=== PATIENT | female | born 1985 | race Caucasian/White ===

== ENCOUNTER 2017-04-14 13:56 | Emergency (ER) | payer BC ==
[~2017-04-14] VITALS: Ht 154.9 cm; Wt 68.0 kg
[2017-04-14 14:49] LABS: ABSOLUTE NEUTROPHILS 7.5 thou/uL (1.4-8.2); BASOPHILS 0.4 % (0.0-2.0); EOSINOPHILS 2.8 % (0.0-3.0); HEMATOCRIT 38.3 % (37.0-47.0); HEMOGLOBIN 13.5 gm/dL (12.0-15.0); MCHC 35.1 g/dL (28.0-37.0); MCV 88.3 fL (80.0-100.0); MONOCYTES 5.5 % (1.0-8.0); PLATELET COUNT 238 thou/uL (150-400); POLYS 72.3 % (36.0-66.0); RBC 4.34 mil/uL (4.20-5.00); WBC 10.3 thou/uL (4.0-11.0)
[2017-04-14 14:51] LABS: CALCIUM 8.4 mg/dL (8.5-10.1); CREATININE 0.6 mg/dL (0.6-1.0); POTASSIUM 3.6 mmol/L (3.5-5.1)
[2017-04-14 15:38] LABS: URINE BILIRUBIN NEGATIVE (Negative); URINE BLOOD 1+ (Negative); URINE CLARITY CLEAR; URINE COLOR YELLOW; URINE GLUCOSE-RANDOM* NEGATIVE (Negative); URINE KETONES NEGATIVE (Negative); URINE LEUKOCYTES-REFLEX NEGATIVE (Negative); URINE NITRITE-REFLEX NEGATIVE (Negative); URINE PROTEIN (DIPSTICK) NEGATIVE (Negative); URINE SPECIFIC GRAVITY >= 1.030 (1.005-1.035); URINE UROBILINOGEN 0.2 E.U./dl (0.2-1.0)
[2017-04-14 15:54] LABS: MUCUS >6 Heavy strn/LPF (None Seen); SQUAMOUS >10 Many /LPF (0-3)
[2017-04-14 15:55] LABS: BACTERIA-REFLEX 1-9 Few /HPF (None Seen); CASTS None Seen /LPF (None Seen); CRYSTALS None Seen /LPF (None Seen); URINE RBC 0-2 Rare /HPF (0-2); URINE WBC-REFLEX 0-5 Rare /HPF (0-5)
[2017-04-14] MEDS ORDERED: PRENATAL MULTI1 EAC4 PO (17:08)
[2017-04-14] MEDS ORDERED: REGLAN 10 MG TA10 MG PO (17:08)
== END 2017-04-14 17:29 | disposition home or self-care (01) ==
LOC: EDBD 13:56 → ER 13:56
PROVIDERS: Physician Assistant
DX: O20.0 Threatened abortion (principal); Z3A.01 Less than 8 weeks gestation of pregnancy; Z91.013 Allergy to seafood

== ENCOUNTER 2020-06-19 17:18 | Emergency (ER) | payer OTHER ==
[~2020-06-19] VITALS: Ht 157.5 cm; Wt 82.6 kg
[~2020-06-19 17:18] MED LIST: PRENATAL MULTI1 EAC4 PO; REGLAN 10 MG TA10 MG PO
[2020-06-19] MEDS ORDERED: VENTOLIN HFA 1818 GM INH (18:28)
[2020-06-19] MEDS ORDERED: PREDNISONE 20 M20 M1 PO (18:28)
[2020-06-19 18:38] VITALS: BP 101/80
--- NOTE | 2020-06-22 07:35 | EKG ---
[address] [address] ELECTROCARDIOGRAM REPORT Name: MICHEAL LOPEZ [id number] Admission: 06/19/20 Attend Phys: Discharge: 06/19/20 Date of : 89 Report #: [id number] [facility] ED Test Date: 2020-06-19 Test Time: 17:27:27 Pat Name: MICHEAL LOPEZ Department: Room: Gender: F Test Desk Trouble Locator: ARNIE : 1985 Requested By: Scarlet Rondon Order Number: [id number] MD: Rich Underwood Measurements Intervals [place] Rate: 74 P: 43 TX: 182 QRS: 66 QRSD: 73 T: 36 QT: 358 QTc: 398 Interpretive Statements Sinus rhythm Probable left atrial enlargement No previous ECG available for comparison Electronically Signed On 06-22-2020 7:35:54 [employer] by Rich Underwood [email or web address] <ELECTRONICALLY SIGNED> By: Rich Underwood MD, [facility] 06/22/20 0735 1727 1727 Rich Underwood MD, FACC /EPI
== END 2020-06-19 18:40 | disposition home or self-care (01) ==
LOC: ER 17:18
DX: J45.901 Unspecified asthma with (acute) exacerbation (principal); Z79.899 Other long term (current) drug therapy; Z91.048 Other nonmedicinal substance allergy status; Z91.013 Allergy to seafood